=== PATIENT | female | born 1970 ===

== ENCOUNTER 2017-05-03 15:27 | Outpatient (CLI) | payer BC ==
--- NOTE | 2017-05-04 14:55 | Mammography Report ---
BILATERAL DIGITAL SCREENING MAMMOGRAM with CAD: 05/03/17 15:27:00 CLINICAL: Routine screening. COMPARISON:06/25/15 FINDINGS: The breasts are heterogeneously dense, which may obscure small masses. No mass, architectural distortion or suspicious calcifications. IMPRESSION: No mammographic evidence of malignancy. BI-RADS CATEGORY: 1 - - Negative RECOMMENDATION: Routine mammographic screening in one year. COMMENT: Patient follow-up letters are generated by our [employer] application.
== END 2017-05-03 15:28 | disposition home or self-care (01) ==
LOC: SPVWC 15:27
PROVIDERS: ATTEND Nurse Practitioner Women's Health
DX: Z12.31 Encounter for screening mammogram for malignant neoplasm of breast (principal)
CPT/HCPCS: 77067